=== PATIENT | male | born 1955 | race Caucasian/White ===

== ENCOUNTER 2020-01-29 13:25 | Emergency (ER) | payer MEDICAID ==
[~2020-01-29] VITALS: Ht 177.8 cm; Wt 126.0 kg
[2020-01-29] MEDS ORDERED: LOSA50TA14 PO (14:13)
[2020-01-29] MEDS ORDERED: SIMV20TA19 PO (14:13)
--- NOTE | 2020-01-29 14:13 | NUR ---
Break RN note: First contact with pt. Pt c/o painful swelling on L foot x4 days. Pt ambulatory with steady gait. Pt states he is concerned because he is a diabetic.
--- NOTE | 2020-01-29 14:49 | NUR ---
BEDSIDE REPORT AND CARE FROM CHANI LARA AT THIS TIME. US AT BEDSIDE. PT REQUESTING MEDICATION FOR " MY HEART BURN, IT'S ACTING UP," TO DISCUSS WITH ERP. CONT PULSE OX, BP MONITORS IN PLACE, VSS. DENIES ANY PAIN "MY FOOT ONLY HURTS WHEN I HAVE TO STAND UP AND WALK ON IT." RESTING COMFORTABLY. CALL LIGHT IN REACH. FALL PRECAUTIONS IN PLACE. SIDE RAILS UPX2. A&OX4.
[2020-01-29 14:50] LABS: BASOPHILS # (AUTO) 0.03 x10^3/uL (0-0.1); BASOPHILS % (AUTO) 0 % (0-1); EOSINOPHILS # (AUTO) 0.04 x10^3/uL (0-0.4); EOSINOPHILS % (AUTO) 1 % (1-7); LYMPHOCYTES # (AUTO) 1.91 x10^3/uL (1-3.4); LYMPHOCYTES % (AUTO) 26 % (22-44); MD NO; MEAN CORPUSCULAR HEMOGLOBIN 30.8 pg (27.5-34.5); MEAN CORPUSCULAR HGB CONC 33.4 g/dL (33.2-36.2); MEAN CORPUSCULAR VOLUME 92.3 fL (81-97); MEAN PLATELET VOLUME 7.6 fL (7.4-10.4); MONOCYTES # (AUTO) 0.57 x10^3/uL (0.2-0.8); MONOCYTES % (AUTO) 8 % (2-9); NEUTROPHILS # (AUTO) 4.89 x10^3/uL (1.8-6.8); NEUTROPHILS % (AUTO) 66 % (42-75); PLATELET COUNT 265 x10^3/uL (130-400); RED BLOOD COUNT 5.36 x10^6/uL (4.38-5.82); RED CELL DISTRIBUTION WIDTH 13.1 % (9.4-14.8)
[2020-01-29 14:51] VITALS: BP 145/89
--- NOTE | 2020-01-29 15:00 | NUR ---
DISCUSSED PT REQUEST FOR "HEART BURN MEDICINE" WITH DR. PINZON, AWARE, AWAITING ORDERS.
[2020-01-29 15:02] LABS: ALANINE AMINOTRANSFERASE 41 U/L (12-78); ALBUMIN 3.8 g/dL (3.4-5.0); ANION GAP 6 mmol/L (5-15); C-REACTIVE PROTEIN, QUANT 0.58 mg/dL (0.02-0.49); CALCIUM 8.7 mg/dL (8.5-10.1); CHLORIDE 107 mmol/L (98-107); CREATININE 1.03 mg/dL (0.7-1.3)
[2020-01-29 15:05] LABS: ALKALINE PHOSPHATASE 53 U/L (45-117); BILIRUBIN,TOTAL 0.4 mg/dL (0.2-1.0); TOTAL PROTEIN 7.1 g/dL (6.4-8.2)
--- NOTE | 2020-01-29 15:20 | NUR ---
DR. PINZON AT BEDSIDE DISCUSSING HEART BURN AND POC, PT REPORTS HEART BURN RESOLVED. PT TO BE DISCHARGED, AWAITING CHART AND DISCHARGE INSTRUCTIONS.
== END 2020-01-29 15:45 | disposition home or self-care (01) ==
LOC: ED 13:59
DX: M79.672 Pain in left foot (principal); M79.89 Other specified soft tissue disorders; I10 Essential (primary) hypertension; E11.9 Type 2 diabetes mellitus without complications
CPT/HCPCS: 36415; 80053; 85025; 86140; 99284